=== PATIENT | male | born 1990 | race American Indian/Alaskan Native ===

== ENCOUNTER 2019-08-03 11:36 | Emergency (ER) | payer SELFPAY ==
[2019-08-03 11:44] VITALS: BP 107/68
--- NOTE | 2019-08-03 11:54 | Emergency Department Report ---
Chief Complaint: Dental/Oral Stated Complaint: MIRGAINES, TOOTHACHE Time Seen by Provider: 08/03/19 11:50 - HPI History of Present Illness: pt is a 28 yo male who presents to the ED with c/o bilateral dental pain that began a couple of months ago. states that it has worsened his migraines. has not seen a dentist in several years. he denies any fever, vomiting, no difficulty swallowing, vision changes, numbness, or weakness. no pmhx. allergy: ritalin vitals are normal on exam: Non toxic appearing, no acute distress atraumatic, normocephalic normal appearance of the eyes, PERRL, EOMI, no periorbital edema or ecchymosis moist mucus membranes, the bilateral lower molars each have small crack with piece of tooth missing, there is no edema or induration surrounding the gumline, normal oropharynx, no trismus, no tongue elevation, no muffled voice, uvula is midline no uvular edema, no facial edema, cerumen impactions present in the bilateral ear canals regular heart rate and rhythm, no gallops, no rubs, no murmurs breath sounds are clear bilaterally, no w/r/r, no stridor A&O x4, no focal neuro deficit skin is warm, dry, intact Patient is presenting with dental caries and bilateral cracked teeth No signs of dental abscess or dental infection at this time Patient does have bilateral cerumen impactions and advised patient to use Debrox ear cleaning solution kit Discussed supportive care and symptomatic treatment with patient Patient given multiple community resources Patient given dental follow-up Patient given primary care follow-up Discussed strict return precautions with patient Medical screening examination performed and there is no threat to life or limb at this time - Exam Vital Signs: Vital Signs 08/03/19 11:39 Temperature 97.7 F Pulse Rate 84 Respiratory 18 Rate Blood Pressure 107/68 O2 Sat by Pulse 98 Oximetry MSE screening note: Focused history and physical exam performed. ED Disposition for MSE Clinical Impression: Cracked tooth, Dental caries, Impacted cerumen of both ears Disposition: MED SCREENING EXAM-LEFT Is pt being admited?: No Does the pt Need Aspirin: No Condition: Stable Instructions: Dental Caries (ED), Cerumen Impaction (ED) Additional Instructions: may alternate 650 mg of tylenol then 600 mg of ibuprofen every 6-8 hours as needed for discomfort. may use warm salt water gargles. please use debrox ear cleaning solution kit to remove wax, do not use qtips. please have your ears rechecked by a primary care doctor. please follow up with a dentist. it is very important you follow up with a dentist. return to the emergency room for any new or worsening symptoms. Referrals: [facility] [Outside] - 2-3 Days [facility] [Outside] - 2-3 Days ELIJAH SIMS MD [Staff Physician] - 2-3 Days [facility] [Provider Group] - 2-3 Days [facility] [Outside] - 2-3 Days Forms: Work/School Release Form(ED) Time of Disposition: 11:54 Print Language: CZECH
== END 2019-08-03 12:25 | disposition left against medical advice (07) ==
LOC: ED 11:36
DX: K08.89 Other specified disorders of teeth and supporting structures (principal); Z53.21 Procedure and treatment not carried out due to patient leaving prior to being seen by health care provider